=== PATIENT | female | born 1935 | race Two or more races ===

== ENCOUNTER 2023-05-27 09:54 | Emergency (ER) | payer SELFPAY ==
[2023-05-27 09:59] VITALS: BP 134/62
[2023-05-27 12:14] VITALS: BP 151/69
[2023-05-27 12:23] LABS: Urine Albumin Negative (Neg - Trace); Urine Bilirubin Negative (Negative); Urine Character Clear (Clear); Urine Color Yellow; Urine Glucose Negative (Negative); Urine Ketone Negative (Negative); Urine Leukocyte 1+ (Negative); Urine Nitrite Positive (Negative); Urine Occult Blood Negative (Negative); Urine Urobilinogen Negative (Neg - 1+)
[2023-05-27 12:26] LABS: % Basophils 0.3 % (0-2); % Eosinophils 1.8 % (0-6); % Immature Granulocytes 0.5 % (0-0.5); % Lymphocytes 13.2 % (20.5-51.1); % Monocytes 7.9 % (1.7-9.3); % Neutrophils 76.3 % (42.2-75.2); Absolute Eosinophils 0.1 10^3/uL (0-0.7); Absolute Lymphocytes 1.1 10^3/uL (1.2-3.4); Absolute Monocytes 0.6 10^3/uL (0.1-0.6); Absolute Neutrophils 6.1 10^3/uL (1.4-6.5); Hematocrit 39.8 % (37.0-47.0); Hemoglobin 13.3 g/dL (12.0-16.0); Mean Corp Hgb Conc. 33.4 g/dL (33.0-37.0); Mean Corpuscular Hgb 28.9 pg (27.0-31.0); Mean Corpuscular Volume 86.5 fL (81.0-99.0); Mean Platelet Volume 11.2 fL (7.4-10.4); Nucleated Red Blood Cells % 0 %; Platelet Count 268 10^3/uL (130-400); Red Cell Dist. Width 13.4 % (11.5-14.5); White Blood Cell Count 7.9 10^3/uL (4.8-10.8)
[2023-05-27 12:34] LABS: ALT (SGPT) 135 U/L (0-35); AST (SGOT) 67 U/L (14-36); Alkaline Phosphatase 69 U/L (38-126); Blood Urea Nitrogen 19 mg/dl (7-17); Calcium 9.2 mg/dl (8.4-10.2); Carbon Dioxide 29 mmol/L (22-30); Chloride 104 mmol/L (98-107); Glucose 91 mg/dl (70-99); Lipase 187 U/L (23-300); Potassium 3.9 mmol/L (3.5-5.1); Sodium 136 mmol/L (135-145); Total Bilirubin 0.8 mg/dl (0.2-1.3); Total Protein 7.4 g/dl (6.3-8.2); eGFR > 60.00
[2023-05-27 12:37] LABS: Urine Bacteria Many (Negative)
[2023-05-27 12:38] LABS: Urine Red Blood Cell 0-2 /HPF (0-2)
[2023-05-27 12:46] LABS: Troponin I 0.025 ng/ml
--- NOTE | 2023-05-27 12:58 | ED.GENMED ---
History of Present Illness
General
Chief Complaint: Weakness
Source: family
Exam Limitations: clinical condition
Time Seen by Provider: 05/27/23 10:39
Nursing documentation reviewed up to this point in time: agreed with
Travel History
Have you had any contact with someone who has COVID-19?: No
Do you have any symptoms of coronavirus? Fever > 100 degrees, chills, cough, shortness of breath, sore throat, loss of taste or smell, muscle aches, or headache?: No
History of Present Illness
History of Present Illness:
pt is a 87 y/o F with no sig pmh
here with c/o intermittent abd pain, ,generalized or lower, family member isn't sure
pt always asks to , she says she wants to at home
and 9 days ago, pt's DIL noticed pt was unresponsive, seemingly having change in breathing, lethargic etc
and DIL thought she was dying, for a period of 7 hours and then pt beccame increasingly alert and able to drink and then eat
but since that day pt has had intermittent c/o abd pain
the DIL tested her urine with OTC test strip and no infx
pt has had less urination than normal but is still voiding
no back pain, fever, cp, sob
pt seems like her balance is a little off, she needs more assistance now than dshe did
DIL wondinerg if she had a stroke
Past History
Social History
Tobacco: Non-smoker
Alcohol: None
Drug: None
Personal: Single
Living: with family
Review of Systems
Review of Systems
Allergies reviewed?: Yes
Other source history: family
All Other Systems: Not applicable
Phy Exam
Physical Exam
Physical Exam:
GENERAL: Alert , in no apparent distress, well appearing
EYE: pupils equal and reactive
NECK: Supple
ENT: o/p clr, mmm.
CARDIAC: Regular rate and rhythm .
LUNGS: Clear breath sounds bilaterally, no acute respiratory distress, no wheezes/rales/rhonchi
ABDOMEN: Soft, without focal tenderness, no r/g, no cvat, normal bowel sounds
NEUROLOGICAL: Alert and oriented, no focal neuro deficits, moving all extremities, cn intact
SKIN: Warm and dry, skin intact.
MUSCULOSKELETAL: No edema, well perfused. neg tiffanie's sign
PSYCH: Normal and appropriate interaction.
Course
Orders/Labs/Results
Orders:
Orders
05/27/23 11:42
Electrocardiogram (*1) Urgent
Reason for Study: TIA/Stroke
CT Abd/pel Without Iv Or Oral Urgent
Comment:
Reason For Exam: abd pain, urinary sypmtoms, confusion
CT Head W/o Iv Contrast Urgent
Comment:
Reason For Exam: confusion
EKG- Treatment ONCE
CR Chest - 2 Views Urgent
Comment:
Reason For Exam: confusion
05/27/23 12:05
Complete Blood Count/With Diff Urgent
Comprehensive Metabolic Panel Urgent
Lipase Urgent
Troponin I Urgent
Urinalysis Reflex To Culture Urgent
Date Specimen was Collected: 05/27/23
Time Specimen was Collected: 12:03
Urine Microscopic Reflex Cult Urgent
Urine Culture Urgent
CHRISTOPHE Source: U
Specimen Description:
Date Specimen was Collected: 05/27/23
Time Specimen was Collected: 12:03
05/27/23 13:32
Cephalexin Monohydrate [Keflex] 500 mg PO NOW STA
Abnormal Lab Results
05/27/23
12:05
MPV 11.2 H fL
(7.4-10.4)
Absolute Lymphs (auto) 1.1 L 10^3/uL
(1.2-3.4)
Neutrophils % 76.3 H %
(42.2-75.2)
Lymphocytes % 13.2 L %
(20.5-51.1)
BUN 19 H mg/dl
(7-17)
AST 67 H U/L
(14-36)
ALT 135 H U/L
(0-35)
Urine Nitrite (Reflex) Positive A
(Negative)
Leukocyte Esterase Rfl 1+ A
(Negative)
Urine WBC (Reflex) 11-15 A /HPF
(0-5)
Urine Bacteria (Reflex) Many A
(Negative)
05/27/23 12:05
05/27/23 12:05
Vital Signs
Initial and Last Documented VS:
Initial Vital Signs
Temp Pulse Resp BP Pulse Ox
98.2 F 71 17 134/62 98
05/27/23 09:59 05/27/23 09:59 05/27/23 09:59 05/27/23 09:59 05/27/23 09:59
Last Documented Vital Signs
Temp Pulse Resp BP Pulse Ox
98.2 F 71 17 151/69 98
05/27/23 09:59 05/27/23 09:59 05/27/23 09:59 05/27/23 12:14 05/27/23 09:59
MDM/Problems Addressed
Differential Diagnosis Includes:
uti, kidney stone, divertic, constipation
MDM/Problems Addressed:
87 y/o F nonenglish speaking
lives with DIL
noted to ahve ams for 7 hours last week and then resolved; family thought she she was dying but she started eating and being responsive
she is much better and has not had other episodes
but she is a little more weak and needing help tot he bathroom, also c/o itermittent abd harshal
doesn't have PCP because doesn't have insurance
on exam pt is oriented, in her language speaking appropriately, moving all extremities
nontender abdomen
urine appears to be infected
wbc normal
cr normal
ct no obstuctive uropathy
head ct no stroke
pt's DIL would like to take her home
pt did well with walker
will give keflex and d/c home
*Critical Care Note
Total Time (30-74mins, 75-104mins- exclusive of procedures): Not Applicable
Update Note
Update Note:
05/30/2023 0752 AM
urine culture e coli joann priest, no treatment change required
ED Attending Note
-
Portions of this chart may have been created with voice recognition software.� Occasional wrong word or��sound alike� substitutions may have occurred due to the inherent limitations of voice recognition software.
Discharge Plan
Departure
Patient Disposition: Home (Routine Discharge)
Date of Disposition: 05/27/23
Time of Disposition: 13:33
Patient with high blood pressure during this ER visit?: Yes
Condition: Fair
Covid-19: Not Applicable
Discharge Problem:
UTI (urinary tract infection)
Instructions: Urinary Tract Infection, Adult (DC), BLOOD PRESSURE
Prescriptions:
New
cephalexin 500 mg capsule
500 mg PO BID Qty: 14 0RF
Referrals:
[facility] - Follow up in 1 week
NONE,* [Family Provider] -
Activity Restrictions/Additional Instructions:
Her symptoms are probably due to a bladder infection. Give her Keflex 500 mg twice a day for 7 days. Encourage fluids. Follow-up with the free [facility], she does have elevated blood pressure readings. She had an incidental finding of
What looks to be a mass next to her right kidney. This would need to be further imaged with an MRI to rule out malignancy. It is unlikely to be contributory today. Return for any change in mental status, fever, vomiting, inability to urinate,
blood in her urine, back pain or any concerns.
Interventions
Interventions:
*Nursing Disposition Last Done: 05/27/23 13:53
ED- Cardiac Assessment Last Done: 05/27/23 12:17
ED- Neurological Assessment Last Done: 05/27/23 12:17
ED- Pulmonary Assessment Last Done: 05/27/23 12:17
Discharge Date and Time
Discharge Date/Time: 05/27/23 13:54
[2023-05-27] MEDS: KEFLEX 500 MG PO (13:40)
--- NOTE | 2023-06-12 13:49 | CM ---
Addendum entered by Quiana Velasquez RN 06/12/23 14:14:
Patient does not have a PCP at this time as well for follow up.
Original Note:
CM was contacted by Cyn Hernandes who had been called to assist patient's daughter with waiver program. Patient was approved for Medicaid and it's currently been assigned to [facility]. Patient's daughter told Cyn that patient is in pain
and she feels like she is dying. Cyn advised that she bring patient to the emergency room for evaluation.
== END 2023-05-27 13:54 | disposition home or self-care (01) ==
LOC: EMR 09:54
PROVIDERS: Physician Assistant; EMERGENCY PHYSICIAN Emergency Medicine
DX: N39.0 Urinary tract infection, site not specified (principal)
CPT/HCPCS: 99284; 70450; 71046; 74176; 80053; 81003; 81015; 83690; 84484; 85025; 87077; 87086; 87186; 93005

== ENCOUNTER 2023-06-15 09:14 | Emergency (ER) | payer SELFPAY ==
[2023-06-15 09:21] VITALS: BP 159/70
[2023-06-15 09:34] VITALS: BP 152/70
--- NOTE | 2023-06-15 09:49 | ED.GENMED ---
History of Present Illness
<Sharon García PA-C - Last Filed: 06/16/23 17:09>
General
Chief Complaint: Abdominal Pain
Source: patient
Exam Limitations: none
Time Seen by Provider: 06/15/23 09:28
Travel History
Have you had any contact with someone who has COVID-19?: No
Do you have any symptoms of coronavirus? Fever > 100 degrees, chills, cough, shortness of breath, sore throat, loss of taste or smell, muscle aches, or headache?: No
History of Present Illness
History of Present Illness:
The patient is a 87 year old female presenting for evaluation of generalized pain and decreased p.o. intake. Symptoms been ongoing over the past month but worsening per patient's caregiver. Patient was seen in the emergency department about 3
weeks ago with similar symptoms, diagnosed with possible UTI treated with Keflex.
Per patient's caregiver�patient complains of generalized pain and abdominal pain daily, most severe in the morning. She had 1 recent episode of vomiting. She does endorse occasional shortness of breath. She denies any fever, chills, cough, chest
pain.
Patient's caregiver does give her MiraLAX daily and states that her bowel movements are regular. They are small but she feels they are correlated to amount of food intake. No blood in her stool or dark stool.
Patient's caregiver who is her llxbblva-mp-[id number] repeatedly states that she was under the impression that patient has colon cancer based on her most recent ER visit. On review of scan�there was note of possible mass on right kidney with further
imaging recommended. I do not see any mention of colon cancer. Patient's iuexuhzt-xk-cvi denies any further imaging/studies. She is currently undergoing paperwork to attempt to get patient at home care.
Past History
<Sharon García PA-C - Last Filed: 06/16/23 17:09>
Social History
Tobacco: Non-smoker
Alcohol: None
Drug: None
Personal: Single
Living: with family
Phy Exam
<Sharon García PA-C - Last Filed: 06/16/23 17:09>
Physical Exam
Physical Exam:
General: Frail, in no apparent distress
Vitals: Vital signs stable, afebrile
HEENT: Atraumatic, normocephalic; pupils equal round react light bilaterally, protecting airway
Neck: appears supple, no JVD
CV: Regular rate and rhythm, heart sounds normal, no evidence of cyanosis
Resp: No evidence of respiratory stress, lungs clear
Abd: Soft, diffuse mild tenderness without rebound or guarding, non-distended
Extremities: No deformities, no evidence of cyanosis or edema; DP pulses palpable and equal bilaterally
Neuro: alert; grossly intact
Psych: Normal affect
Skin: Intact, no rashes
Course
<Sharon García PA-C - Last Filed: 06/16/23 17:09>
Orders/Labs/Results
Orders:
Orders
06/15/23 10:07
Case Management Consult ONCE
Case Management Consult: Discharge Planning
0.9% Sodium Chloride 1000 ml [Nss] 1,000 ml IV BOLUS
06/15/23 10:22
Comprehensive Metabolic Panel Urgent
Lipase Urgent
06/15/23 10:54
Urinalysis Reflex To Culture Urgent
Date Specimen was Collected: 06/15/23
Time Specimen was Collected: 10:49
06/15/23 12:55
Complete Blood Count/With Diff Routine
Comment: REORDERED; PREV. COLLECTED IN SST TUBE, MUST BE LAV TOP TUBE
Abnormal Lab Results
06/15/23 06/15/23
10:22 12:55
MPV 11.0 H fL
(7.4-10.4)
Absolute Lymphs (auto) 1.1 L 10^3/uL
(1.2-3.4)
Lymphocytes % 16.3 L %
(20.5-51.1)
BUN 21 H mg/dl
(7-17)
AST 74 H U/L
(14-36)
ALT 64 H U/L
(0-35)
06/15/23 12:55
06/15/23 10:22
Vital Signs
Initial and Last Documented VS:
Initial Vital Signs
Temp Pulse Resp BP Pulse Ox
98.4 F 61 18 159/70 99
06/15/23 09:21 06/15/23 09:21 06/15/23 09:21 06/15/23 09:21 06/15/23 09:21
Last Documented Vital Signs
Temp Pulse Resp BP Pulse Ox
98.4 F 58 19 132/82 99
06/15/23 09:21 06/15/23 13:30 06/15/23 13:30 06/15/23 13:00 06/15/23 13:30
<Eddie Shah, DO - Last Filed: 06/15/23 12:44>
Orders/Labs/Results
Orders:
Orders
06/15/23 10:07
Case Management Consult ONCE
Case Management Consult: Discharge Planning
0.9% Sodium Chloride 1000 ml [Nss] 1,000 ml IV BOLUS
06/15/23 10:22
Comprehensive Metabolic Panel Urgent
Lipase Urgent
06/15/23 10:54
Urinalysis Reflex To Culture Urgent
Date Specimen was Collected: 06/15/23
Time Specimen was Collected: 10:49
06/15/23 12:55
Complete Blood Count/With Diff Routine
Comment: REORDERED; PREV. COLLECTED IN SST TUBE, MUST BE LAV TOP TUBE
Abnormal Lab Results
06/15/23 06/15/23
10:22 12:55
MPV 11.0 H fL
(7.4-10.4)
Absolute Lymphs (auto) 1.1 L 10^3/uL
(1.2-3.4)
Lymphocytes % 16.3 L %
(20.5-51.1)
BUN 21 H mg/dl
(7-17)
AST 74 H U/L
(14-36)
ALT 64 H U/L
(0-35)
06/15/23 12:55
06/15/23 10:22
Vital Signs
Initial and Last Documented VS:
Initial Vital Signs
Temp Pulse Resp BP Pulse Ox
98.4 F 61 18 159/70 99
06/15/23 09:21 06/15/23 09:21 06/15/23 09:21 06/15/23 09:21 06/15/23 09:21
Last Documented Vital Signs
Temp Pulse Resp BP Pulse Ox
98.4 F 58 19 132/82 99
06/15/23 09:21 06/15/23 13:30 06/15/23 13:30 06/15/23 13:00 06/15/23 13:30
<Sharon García PA-C - Last Filed: 06/16/23 17:09>
MDM/Problems Addressed
Differential Diagnosis Includes:
UTI, dehydration, malignancy, etc.
MDM/Problems Addressed:
Patient is an 87-year-old female presenting with wsgmrbfv-ya-mtf/caregiver for evaluation of generalized pain and decreased p.o. intake. Patient recently seen in ER about 3 weeks ago where she had head CT, abdomen CT, discharged with course of
Keflex for presumed UTI. Patient increasingly weak over the past few weeks with very little p.o. intake. Generalized pain that is worsening per patient's sovetzdc-vn-god. No fever, chills, chest pain, cough. Patient's daughter in the looking for
assistance with home care and trying to determine how to get more help given that she has no health insurance. Patient's vital signs are stable. Physical exam as document above. She is weak appearing with dry mucous members. Her abdomen is soft
and diffusely tender. Given recent CT scan�will avoid repeat CT at this time with no focal pain. Will check basic labs, give IV fluids. Will consult case management.
Case management in to see patient. Form has been signed by attending to start process to have visiting nurse care. Will wait for basic labs and reassess patient. anticipate discharge with home care follow-up.
CBC without any clinically significant abnormalities. CMP without any clinically significant abnormalities. Mild transaminitis which is decreased from prior visit. Urinalysis shows no signs of infection.
Patient's daughter insistent that patient was diagnosed with colon cancer on most recent ER visit. Reviewed CT scan which did show a mass near her right kidney with recommendation for outpatient MRI to rule out malignancy. She has not had any
subsequent visits for medical care for diagnosis of colon cancer. No indication that this is related to today's visit.
In to reassess patient. She is received liter of fluids. Her abdomen remains soft, very mildly tender. Patient's daughter comfortable with discharge with at home nursing care that will be arranged shortly. Will prescribe few tablets of tramadol
for intractable pain. Educated patient on risks associate with tramadol and elderly. 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 Return precautions discussed.
Chronic conditions affecting care:
N/A
Acute Exacerbation and/or Progression of Chronic Illness:
N/A
<Sharon García PA-C - Last Filed: 06/16/23 17:09>
*Pulse Oximetry
Patient hypoxic: no
*EKG
Interpreted by ED Provider?: NA
*Curriculum And Instruction Director Interpretation
Rate: Curriculum And Instruction Director- N/A
*Critical Care Note
Total Time (30-74mins, 75-104mins- exclusive of procedures): Not Applicable
Data Reviewed
Review of Other/Old Records Reveals: Labs, Records, Radiology Studies and Discharge Summary
Source: physician locums urgent care, previous radiology exam and previous hospital records
Further Testing Considered But Not Given:
CT of abdomen but patient had recent CT 3 weeks ago, abdomen exam benign at this time
<Sharon García PA-C - Last Filed: 06/16/23 17:09>
Patient Management
Social determinants of health affecting care: Living situation
Discussion with other providers: Other (Case management)
ED Attending Note
<Sharon García PA-C - Last Filed: 06/16/23 17:09>
-
Portions of this chart may have been created with voice recognition software.� Occasional wrong word or��sound alike� substitutions may have occurred due to the inherent limitations of voice recognition software.
<Eddie Shah DO - Last Filed: 06/15/23 12:44>
ED Attending Note
Patient seen and examined by attending physician: Yes
I performed the substantive portion of visit, reviewed & personally made and approve the management plan that is documented in note by myself or ALLI.: Yes
I performed a history and physical exam of patient and discussed management with resident, I reviewed resident's note and agree with documented findings and plan of care.: Yes
ED Attending Note:
I evaluated patient at bedside. The patient states she has no pain currently (translated through the daughter). She has a soft abdomen on exam currently. She did have CT imaging recently which I reviewed which did show at least a questionable
abnormality off of the kidney suggestive of malignancy but no other clear findings for malignancy elsewhere. Spoke to care management.
Discharge Plan
Departure
Patient Disposition: Home (Routine Discharge)
Date of Disposition: 06/15/23
Time of Disposition: 13:41
Patient with high blood pressure during this ER visit?: Yes
Condition: Good
Covid-19: Not Applicable
Discharge Problem:
Abdominal pain
Instructions: Dehydration, Adult (DC), Abdominal Pain, Adult ED, BLOOD PRESSURE
Prescriptions:
New
tramadol 50 mg tablet
50 mg PO DAILY PRN (Reason: severe pain) Qty: 6 0RF
No Action
Metamucil Packet
1 packet PO DAILY
acetaminophen [Tylenol Extra Strength] 500 mg Tablet
1,000 mg PO Q6HPRN PRN (Reason: MILD PAIN)
magnesium 200 mg Tablet
200 mg PO QPM
cholecalciferol (vitamin D3) [Vitamin D3] 25 mcg (1,000 unit) Tablet
25 mcg PO QPM
Visbiome 112.5 billion cell Capsule
1 cap PO DAILY
PNV cmb#95-ferrous fumarate-FA [] 28 mg iron- 800 mcg Tablet
1 tab PO DAILY
Referrals:
NONE,* [Family Provider] -
Activity Restrictions/Additional Instructions:
- Return to the emergency department any high fevers, severe abdominal pain, intractable nausea/vomiting, signs of severe dehydration, chest pain, shortness of breath, worsening current symptoms, or any other concerns
-You should take Tylenol as needed for discomfort.
-For episodes of intractable, severe pain prescription for tramadol has been sent to your pharmacy. You should only use this for severe pain. As discussed�this may cause drowsiness/instability
-It is important stay well-hydrated
-You should follow-up with primary care for further evaluation/management
Interventions
Interventions:
*Risk Screen - Suicide Last Done: 06/15/23 09:26
*General Assessment Last Done: 06/15/23 09:26
*Neglect/Abuse Screening Last Done: 06/15/23 09:26
ED- Fall Risk Assessment Last Done: 06/15/23 11:09
*ED COVID-19 Vaccine History Last Done: 06/15/23 11:09
*Nursing Disposition Last Done: 06/15/23 14:05
TR-Xsxtbf-Dczyhnhodr Assessment Last Done: 06/15/23 11:09
Discharge Date and Time
Discharge Date/Time: 06/15/23 14:06
[2023-06-15 10:13] VITALS: BP 126/70
[2023-06-15 10:42] LABS: ALT (SGPT) 64 U/L (0-35); AST (SGOT) 74 U/L (14-36); Albumin 3.9 g/dl (3.5-5.0); Alkaline Phosphatase 55 U/L (38-126); Blood Urea Nitrogen 21 mg/dl (7-17); Carbon Dioxide 28 mmol/L (22-30); Chloride 104 mmol/L (98-107); Glucose 99 mg/dl (70-99); Lipase 77 U/L (23-300); Potassium 4.1 mmol/L (3.5-5.1); Sodium 136 mmol/L (135-145); Total Bilirubin 0.7 mg/dl (0.2-1.3); Total Protein 7.4 g/dl (6.3-8.2); eGFR > 60.00
[2023-06-15] MEDS: NSS 1000 IV (10:50)
--- NOTE | 2023-06-15 10:51 | CM ---
CM reviewed medical records. Patient's daughter is requesting assistance with filling out Waiver Program paperwork. CM requested ED physician to sign Waiver certification. CM returned form to daughter.
CM further provided resources on [facility] and Residency Program to assist with PCP follow up.
[2023-06-15 11:00] VITALS: BP 133/70
[2023-06-15 11:03] LABS: Urine Albumin Negative (Neg - Trace); Urine Bilirubin Negative (Negative); Urine Character Clear (Clear); Urine Color Yellow; Urine Glucose Negative (Negative); Urine Ketone Negative (Negative); Urine Leukocyte Negative (Negative); Urine Nitrite Negative (Negative); Urine Occult Blood Negative (Negative); Urine Urobilinogen Negative (Neg - 1+); Urine pH 6.5 (5.0-9.0)
[2023-06-15 12:00] VITALS: BP 169/75
[2023-06-15 13:00] VITALS: BP 132/82
[2023-06-15 13:09] LABS: % Basophils 0.3 % (0-2); % Eosinophils 2.6 % (0-6); % Immature Granulocytes 0.3 % (0-0.5); % Lymphocytes 16.3 % (20.5-51.1); % Monocytes 8.8 % (1.7-9.3); % Neutrophils 71.7 % (42.2-75.2); Absolute Eosinophils 0.2 10^3/uL (0-0.7); Absolute Lymphocytes 1.1 10^3/uL (1.2-3.4); Absolute Monocytes 0.6 10^3/uL (0.1-0.6); Absolute Neutrophils 4.7 10^3/uL (1.4-6.5); Hematocrit 39.7 % (37.0-47.0); Hemoglobin 13.2 g/dL (12.0-16.0); Mean Corp Hgb Conc. 33.2 g/dL (33.0-37.0); Mean Corpuscular Hgb 28.9 pg (27.0-31.0); Mean Corpuscular Volume 87.1 fL (81.0-99.0); Nucleated Red Blood Cells % 0 %; Platelet Count 233 10^3/uL (130-400); Red Blood Cell Count 4.56 10^6/uL (4.20-5.40); Red Cell Dist. Width 13.7 % (11.5-14.5); White Blood Cell Count 6.6 10^3/uL (4.8-10.8)
== END 2023-06-15 14:06 | disposition home or self-care (01) ==
LOC: EMR 09:14
PROVIDERS: Physician Assistant; EMERGENCY PHYSICIAN Emergency Medicine
DX: R10.9 Unspecified abdominal pain (principal); R03.0 Elevated blood-pressure reading, without diagnosis of hypertension
CPT/HCPCS: 99284; 96360; 80053; 81003; 83690; 85025

== ENCOUNTER 2025-01-02 11:46 | Inpatient (IN) | payer MEDICARE, OTHER, SELFPAY ==
[2025-01-01 10:39] VITALS: BP 144/65
[2025-01-01 11:00] VITALS: BP 132/59
[2025-01-01] MEDS: NSS 500 IV (11:38)
[2025-01-01 11:59] LABS: Hematocrit 40.4 % (37.0-47.0); Hemoglobin 13.2 g/dL (12.0-16.0); Mean Corp Hgb Conc. 32.7 g/dL (33.0-37.0); Mean Corpuscular Volume 90.2 fL (81.0-99.0); Nucleated Red Blood Cells % 0 %; Platelet Count 194 10^3/uL (130-400); Red Cell Dist. Width 13.7 % (11.5-14.5)
[2025-01-01 12:04] LABS: ALT (SGPT) 58 U/L (0-35); AST (SGOT) 53 U/L (14-36); Albumin 3.9 g/dl (3.5-5.0); Alkaline Phosphatase 75 U/L (38-126); Blood Urea Nitrogen 25 mg/dl (7-17); Calcium 9.2 mg/dl (8.4-10.2); Carbon Dioxide 29 mmol/L (22-30); Chloride 109 mmol/L (98-107); Glucose 98 mg/dl (70-99); Lipase 96 U/L (23-300); Potassium 3.8 mmol/L (3.5-5.1); Sodium 142 mmol/L (135-145); Total Protein 7.5 g/dl (6.3-8.2); eGFR > 60.00
[2025-01-01 12:11] LABS: Urine Character Clear (Clear)
[2025-01-01 12:38] LABS: Urine Squamous Cell 0-2 /LPF (Few)
--- NOTE | 2025-01-01 14:59 | ED.GENMED ---
History of Present Illness
General
Chief Complaint: Urinary Symptoms
Source: patient and family
Exam Limitations: none
Time Seen by Provider: 01/01/25 10:17
History of Present Illness
History of Present Illness:
89-year-old female presents with urinary issues. At times inability to urinate at times frequency and ongoing chronic abdominal pain not responsive to Tylenol.
Past History
Past History
ED Past Medical History: Cancer and GERD
ED Past Surgical History: Cholecystectomy and Urological
Social History
Tobacco: Non-smoker
Alcohol: None
Drug: None
Personal: Single
Living: with family
Review of Systems
Review of Systems
All Other Systems: Not applicable
Respiratory: Reports no symptoms
Cardiac: Reports no symptoms
Phy Exam
Physical Exam
Physical Exam:
GENERAL: Alert. Elderly and frail
EYE: Orbits normal.
NECK: Supple, no significant adenopathy.
ENT: Pharynx without erythema
CARDIAC: Regular rate and rhythm without any obvious murmurs.
LUNGS: Clear breath sounds,normal
ABDOMEN: Soft, mild diffuse tenderness. No rebound or guarding no mass or hernia
NEUROLOGICAL: Alert and oriented , grossly non-focal
SKIN: Warm and dry, no rash or lesion, no discoloration, skin intact.
MUSCULOSKELETAL: No edema,no deformity.Good color
PSYCH: Normal and appropriate interaction.
Course
Orders/Labs/Results
Orders:
Orders
01/01/25 10:50
CT Abd/Pel (IV only)-DH only Urgent
Comment:
Reason For Exam: Diffuse abdominal pain. Urinary symptoms
IV Insert/Care/Rem.- Treatment PRN
Straight cath- Treatment ONCE
0.9% Sodium Chloride 500 ml [Nss] 500 ml IV BOLUS
01/01/25 11:37
Complete Blood Count/With Diff Urgent
Comprehensive Metabolic Panel Urgent
Lipase Urgent
Urinalysis Reflex To Culture Urgent
Date Specimen was Collected: 01/01/25
Time Specimen was Collected: 11:02
Urine Microscopic Reflex Cult Urgent
Urine Culture Urgent
CHRISTOPHE Source: U
Specimen Description:
Date Specimen was Collected: 01/01/25
Time Specimen was Collected: 11:02
01/01/25 14:54
CefTRIAXone [Rocephin] 1,000 mg IV NOW STA
Abnormal Lab Results
01/01/25
11:37
MCHC 32.7 L g/dL
(33.0-37.0)
MPV 11.7 H fL
(7.4-10.4)
Absolute Lymphs (auto) 0.7 L 10^3/uL
(1.2-3.4)
Neutrophils % 78.7 H %
(42.2-75.2)
Lymphocytes % 10.8 L %
(20.5-51.1)
Chloride 109 H mmol/L
(98-107)
BUN 25 H mg/dl
(7-17)
AST 53 H U/L
(14-36)
ALT 58 H U/L
(0-35)
Ur Occult Blood Reflex 2+ A
(Negative)
Urine Nitrite (Reflex) Positive A
(Negative)
Leukocyte Esterase Rfl 2+ A
(Negative)
Urine RBC 7-10 A /HPF
(0-2)
Urine WBC (Reflex) 11-15 A /HPF
(0-5)
Urine Bacteria (Reflex) Many A
(Negative)
Urine Albumin (Reflex) 2+ A
(Neg - Trace)
01/01/25 11:37
01/01/25 11:37
Vital Signs
Initial and Last Documented VS:
Initial Vital Signs
BP Pulse Ox
144/65 99
01/01/25 10:39 01/01/25 10:39
Last Documented Vital Signs
BP Pulse Ox
132/59 99
01/01/25 11:00 01/01/25 15:02
*Radiology
Radiology exam reviewed: radiology read reviewed (CT scan shows cystitis severe calcific atherosclerotic disease renal cysts prior cholecystectomy. 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
*Pulse Oximetry
SaO2: 99
Oxygen Mode of Delivery: Room air
Patient hypoxic: no
*Critical Care Note
Total Time (30-74mins, 75-104mins- exclusive of procedures): Not Applicable
Update Note
Update Note:
Patient has a UTI. Medically stable otherwise. Chronic changes on CT scan I had encouraged possible outpatient management per the daughter in law. But, she is not comfortable with outpatient management and does not want her at home and is not
comfortable having her at home. Will admit as an hobs
ED Attending Note
-
Portions of this chart may have been created with voice recognition software.� Occasional wrong word or��sound alike� substitutions may have occurred due to the inherent limitations of voice recognition software.
Discharge Plan
Departure
Patient Disposition: Admit
Date of Disposition: 01/01/25
Time of Disposition: 15:01
Presentation/result/management discussed w/ accepting MD/DO: Hospitalist
Discharge Problem:
UTI/weakness
Prescriptions:
No Action
Metamucil Packet
1 packet PO DAILY
acetaminophen [Tylenol Extra Strength] 500 mg Tablet
1,000 mg PO Q6HPRN PRN (Reason: MILD PAIN)
magnesium 200 mg Tablet
200 mg PO QPM
cholecalciferol (vitamin D3) [Vitamin D3] 25 mcg (1,000 unit) Tablet
25 mcg PO QPM
Visbiome 112.5 billion cell Capsule
1 cap PO DAILY
PNV no.95-ferrous fumarate-FA [] 28 mg iron- 800 mcg Tablet
1 tab PO DAILY
tramadol 50 mg tablet
50 mg PO DAILY PRN (Reason: severe pain) Qty: 6 0RF
tramadol 50 mg tablet
50 mg PO Q8H PRN (Reason: Pain) Qty: 6 0RF
Referrals:
Alexi Cobian DO [Family Provider, Family Practice]
Interventions
Interventions:
ED-Female Genitourinary Assessment Last Done: 01/01/25 12:15
Discharge Date and Time
Print Language: POLISH
--- NOTE | 2025-01-01 15:22 | HPS.HSE ---
Family Physician
-
Family Physician: Alexi Cobian,
Chief Complaint
-
Dysuria and generalized weakness
History of Present Illness
Patient is Brazilian speaking, language line used for this visit. No family present at bedside.
89-year-old female with no signal past medical history except chronic ambulatory dysfunction,h/o of cancer? Was broughy patient ht in by daughter after patient was noted to be more weak lethargic. Language line used for history gathering and
patient complaining some dysuria and some urinary incontinence at time. Have some lower abdominal discomfort although not specifically worse with urination, happens when patient tries to move as well. Patient complaining of pain from 'head to
toe'. Patient also continue repeating being old and wanting to . Denies any nausea/vomiting/fever.
Chart reviewed and patient have previous 1 urine culture showing E. coli growth. Patient unsure if ever had problem with kidney stones.
Patient also complains of feeling dizzy at time and uses stick to get around. Lives with [id number] and other family. Patient has been falling unable to specify if have felt recently. Patient stated of having passed out day before when going
to the bathroom in the night. No chest discomfort/shortness of breath reported.
Medical History
Past Medical History
Past Medical History: Reports Other
Past Surgical History: Reports Other
Social History
Tobacco: Non-smoker
Alcohol: None
Drug: None
Living: With Family
Family History
Family History: Not pertinent
Allergies / Home Medications
Allergies reflects when Allergies were last updated in [employer]
Home Medications with original date entered in [employer]
Allergy/Medication List:
Allergies
Allergy/AdvReac Type Severity Reaction Status Date / Time
coffee (Coffea arabica) Allergy Unknown Verified 06/15/23 09:20
egg Allergy Unknown Verified 06/15/23 09:20
Home Medications
acetaminophen 500 mg tablet (Tylenol Extra Strength) 1,000 mg PO Q6HPRN PRN MILD PAIN 06/15/23
Lactobac no.2-Bifidobac no.1-S. thermo 112.5 billion cell capsule (Visbiome) 1 cap PO DAILY 01/01/25
therapeutic multivitamin 1 tab PO DAILY 01/01/25
Review of Systems
-
A 12 point ROS was completed and negative except as noted: Yes
Physical Exam
Vital Signs
Vital Signs
BP Pulse Ox
132/59 99
01/01/25 11:00 01/01/25 15:02
Physical Exam
General: No Apparent Distress and Cachectic
HEENT: Atraumatic; No Oxygen
Respiratory: Clear
Cardiac: S1/S2 and Regular Rhythm; No Murmur or Rub
GI: Soft, Non Tender, Non Distended and Tender (Minimal on lower abdomen); No Organomegaly
Rectal: Deferred by Provider
Musculoskeletal: No Edema
Skin: No Rash
Neuro: Awake, Alert, Oriented and Nonfocal/grossly intact
Psych: Calm
Laboratory Results
-
01/01/25 11:37
01/01/25 11:37
Laboratory Results
Total Bilirubin 0.5 mg/dl (0.2-1.3) 01/01/25 11:37
AST 53 U/L (14-36) H 01/01/25 11:37
ALT 58 U/L (0-35) H 01/01/25 11:37
Alkaline Phosphatase 75 U/L (38-126) 01/01/25 11:37
Lipase 96 U/L (23-300) 01/01/25 11:37
Impression/Plan
-
CT a/p
1. Mild diffuse urinary bladder wall thickening consistent with acute cystitis.
2. VERY SEVERE CALCIFIC ATHEROSCLEROTIC DISEASE in the abdominal aorta, common iliac, and femoral arteries.
3. Small bilateral renal cysts.
4. Mild biliary dilatation.
5. Previous cholecystectomy.
6. Round 1.0 cm enhancing lesion in the anterior segment of the right lobe of the liver. Diagnostic possibilities are (1) a small peripheral vascular shunt (most likely) or (2) a small hepatic tumor (probably benign).
7. Moderate fecal material in the proximal colon.
8. Severe multilevel lumbar discogenic degenerative disease.
9. 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
10. Mild left to right mediastinal shift suggesting right lung volume loss.

1. Acute cystitis/urinary tract infection
- UA showing significant pyuria and bacteriuria
- Patient complaining lower abdominal discomfort and some dysuria, unable to specify details despite use of language line
- CT abdomen pelvis report as above
- Got IV Rocephin in ER continue
- Urine culture has been collected
- If patient spikes fever will require blood cultures while
2. Generalized weakness
Ambulatory dysfunction
- PT OT evaluation ordered
- Patient stated of using stick to get around at home
3. Presyncope/syncope
- Patient reported to having a syncope episode day before and woke up in the night
- Suspecting orthostatic in nature, vital checks ordered
4. Hepatic mass
- Reported history of cancer in the chart? needs to be verified
- CTAP showing a small lesion possible vascular shunt versus benign tumor
5. Peripheral arterial disease
- Severe calcific changes of abdominal aorta/iliac/femoral artery
- Good lower extremity pulse, no signs of ischemia
6. Constipation
- maintain on miralax prn
DVTPPX -SCD
Full code
Total time spent : 78 mins
I personally saw and examined the patient.
I have reviewed all diagnostic interpretations and treatment plans as written.
Time includes patient management by me, time spent at the patients bedside, time to review lab and imaging results, discussing patient care, documentation in the medical record, and time spent with the family or caregiver and discussing care plan
with RN/Consultants.
[2025-01-01] MEDS: ROCEPHIN 1000 MG IV (15:53)
--- NOTE | 2025-01-01 16:32 | EDCM ---
Addendum entered by Ana Lilia Brito 01/01/25 16:42:
ZENG form reviewed over the phone with DEMETRIUS, copy left at bedside in ED.
Original Note:
CM reviewed chart and spoke to her DIL Sharmaine Croft over the phone. Pt speaks Malay.
Lives with her son, DEMETRIUS and teenage grandson in 1 story home, [address].
Pt needs assistance with ADLs and personal care. DEMETRIUS is paid caregiver, 9 hours a day. DEMETRIUS also works at [employer].
Was ambulating with RW but has been very weak over past week, also has commode and shower chair.
DIL unsure if prescription coverage as pt is not on any prescription meds.
No hx VN or SNF.
DIL mentioned they were told she had 'kidney tumors' in the past, questioning if this is causing her pain. Pt did not want treatment or further studies done. Discussed possibility of palliative care consult, she will think about it.
PCP: Alexi Cobian
Pharmacy: [facility]
CM will continue to follow for all discharge planning needs.
[2025-01-01 18:11] VITALS: BMI 19.7
[2025-01-01 18:33] VITALS: BP 163/98
[2025-01-01] MEDS: HEPARIN 5000 UNITS SC (20:44)
[2025-01-01] MEDS: NSS 1000 IV (20:44)
[2025-01-01] MEDS: VITAMIN D3 (cholecalciferol) 25 MCG PO (20:44)
[2025-01-01] MEDS: TYLENOL 650 MG PO (20:48)
[2025-01-01 23:39] VITALS: BP 149/69
--- NOTE | 2025-01-02 00:47 | PTCARENOTE ---
Pt has been voiding frequently on BSC in increasingly smaller amts. Bladder scanned for >417 ml. Pt straight cathed after procedure explained through orange picker machine operator. Pt cooperative & tolerated well; 400ml obtained.
--- NOTE | 2025-01-02 06:33 | PTCARENOTE ---
Many times OOB to BSC thru the night, sometimes voiding and sometimes no void. Bladder scanned @ 0500 for 297ml (not post void) and then proceeded to void 150ml. Just now voided again - 100ml. Has denied dysuria via cruise consultant.
[2025-01-02 07:15] VITALS: BP 122/68
[2025-01-02] MEDS: HEPARIN 5000 UNITS SC ×2 (08:16→20:36)
[2025-01-02 08:50] LABS: Hematocrit 43.3 % (37.0-47.0); Hemoglobin 14.6 g/dL (12.0-16.0); Mean Corp Hgb Conc. 33.7 g/dL (33.0-37.0); Mean Corpuscular Volume 88.4 fL (81.0-99.0); Platelet Count 197 10^3/uL (130-400); Red Cell Dist. Width 13.5 % (11.5-14.5)
[2025-01-02 09:20] LABS: Blood Urea Nitrogen 14 mg/dl (7-17); Calcium 8.7 mg/dl (8.4-10.2); Carbon Dioxide 24 mmol/L (22-30); Chloride 106 mmol/L (98-107); Estimated Creatinine Clearance 33 ml/min; Glucose 107 mg/dl (70-99); Potassium 3.8 mmol/L (3.5-5.1); Sodium 139 mmol/L (135-145); eGFR > 60.00
[2025-01-02 09:22] VITALS: BP 160/83; BP 176/86; PULSE 71; O2SAT 98
[2025-01-02 09:59] VITALS: BP 160/83; BP 176/86
[2025-01-02] MEDS: NSS 1000 IV ×2 (10:10→23:54)
--- NOTE | 2025-01-02 14:42 | W.PN.HOSP.TC ---
Today's Communication/Plan
-
cont ceftriaxone
MRI abdomen
cont pyridium
Assessment / Plan
Assessment / Plan
pt is an 89 year old female
Acute cystitis/urinary tract infection--possible cause of abdominal pain/pain with urination?--cont ceftriaxone--urine culture with E. coli--Pyridium started--cont IVF-- CT abdomen pelvis shows acute cystitis with bilateral renal cysts--DIL says pt
was found to have 'a mass in her kidney--was told to follow up with an MRI which she refused to do'--DIL concerned about cancer--will obtain MRI if pt will be cooperative
abdominal pain--other causes besides UTI could be Chronic avulsion fractures of both ischial tuberosities at the proximal hamstring tendon attachments, constipation
Generalized weakness/confusion with presyncope/syncope--Ambulatory dysfunction--pt says she feels dizzy--could be related to UTI--agree with PT/OT
Hepatic mass-- Reported history of cancer in the chart? needs to be verified-- CTAP showing a small lesion possible vascular shunt versus benign tumor--will obtain MRI abdomen
Peripheral arterial disease- Severe calcific changes of abdominal aorta/iliac/femoral artery--no signs of ischemia
Constipation- maintain on miralax prn--confirmed by CT scan--DIL says she goes all day at home
DVT proph -SCD
code status--Full code
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
Anticipated Discharge: 24 - 48 hours
Subjective/Interval History
-
Date of Service: January 02, 2025
pt speaks Mauritian--used language line--pt seems to have dementia as answers not corresponding to questions asked--DIL confirms
Objective Data
-
Labs:
Laboratory Results
01/02/25
08:01
WBC 5.7
Hgb 14.6
Hct 43.3
Plt Count 197
Sodium 139
Potassium 3.8
Chloride 106
Carbon Dioxide 24
BUN 14
Creatinine 0.7
Glucose 107 H
Calcium 8.7
Vital Signs:
max temp for 24 hours
01/01/25
23:39
Temp 97.7 F
Vital Signs
Temp Pulse Resp BP Pulse Ox
97.6 F 72 18 122/68 99
01/02/25 07:15 01/02/25 07:15 01/02/25 07:15 01/02/25 07:15 01/02/25 08:09
I&O
01/01/25 01/02/25 01/03/25
06:59 06:59 06:59
Intake Total 600 / 600
Output Total 925 / 925
Balance -325 / -325
Review of Systems
-
Unable to obtain full review of systems at this time due to: Dementia and Language Barrier
Physical Exam
-
General: Cachectic (frail appearing female)
HEENT: Normocephalic and Atraumatic; Negative Oxygen
Respiratory: Clear to Auscultation; Negative Wheezes or Rhonchi
Cardiac: Regular Rhythm and S1/S2; Negative Murmur
GI: Soft, Nondistended, Normal Bowel Sounds and Tender (suprapubic area)
Musculoskeletal: No Clubbing, No Cyanosis and No Edema
Neuro: Awake
Psych: Calm
[2025-01-02 15:10] VITALS: BP 111/75
--- NOTE | 2025-01-02 15:14 | CM ---
Patient seen at bedside with physician. Physician spoke with patient via language line. Patient daughter in law [phone] Génesis Croft and she indicated that patient may need placement but she will discuss with her options when diagnosis is
confirmed. Patient was living with daughter in law in the past and she did have waiver services 9 hours a day and has MA. CM will continue to follow for discharge planning needs.
Plan; pending medical treatment; SNF vs home with aides.
--- NOTE | 2025-01-02 16:17 | PTCARENOTE ---
Pt awake and alert, oriented to self; forgetful; speaks Slovenian. Pt frequently attempting to get OOB/chair; unsteady w/OOB activity; 1:1 obs initiated. BOTELLO well. VSS, unable to assess ortho VS; pt will not hold still long enough for BP to
register. On room air- pulse ox 99%, no SOB noted. Abd soft, sl rounded, sirena PO well. Voids frequent small amts yellow urine on BSC. IVF's NSS @ 75 ml/hr infusing via Rt forearm site without sx of infiltration. Will continue to monitor.
[2025-01-02] MEDS: STERILE WATER FOR INJECTION 10 ML IV (16:20)
[2025-01-02] MEDS: ROCEPHIN 1000 MG IV (16:20)
[2025-01-02] MEDS: VITAMIN D3 (cholecalciferol) 25 MCG PO (17:41)
[2025-01-02] MEDS: MELATONIN 3 MG PO (20:36)
[2025-01-02 23:05] VITALS: BP 149/76
--- NOTE | 2025-01-03 02:30 | PTCARENOTE ---
Patient continues with 1:1 monitoring overnight, trying to get up out of chair and bed. Assisted patient from chair to bed and bed to chair multiple times. Up to BSC but did not void. Bladder scanned for 338 ml. SYSTEMS PROGRAM MANAGER made aware, orders for
melatonin. Utilized language line to help redirect patient but patient still trying to get OOB. Agitated and combative at times, pulling out IV line. New line placed by VAT RN. Orders for left and right soft limb restraints and 4 side rails per
SYSTEMS PROGRAM MANAGER. Patient DTV, bladder scanned for 538 ml. Assisted patient to BSC x2, voided 120 ml. PVR of 453 ml. LIGHTING ENGINEER aware, orders for jaquez catheter. Procedure explained to patient via language line rice farmworker and patient agreeable. 14F jaquez placed. Plan
of care ongoing.
[2025-01-03 08:09] LABS: Hematocrit 42.3 % (37.0-47.0); Hemoglobin 14.2 g/dL (12.0-16.0); Mean Corp Hgb Conc. 33.6 g/dL (33.0-37.0); Mean Corpuscular Volume 88.3 fL (81.0-99.0); Platelet Count 212 10^3/uL (130-400); Red Cell Dist. Width 13.4 % (11.5-14.5)
[2025-01-03 08:17] VITALS: BP 179/83
[2025-01-03 08:43] LABS: ALT (SGPT) 62 U/L (0-35); AST (SGOT) 68 U/L (14-36); Albumin 4.2 g/dl (3.5-5.0); Alkaline Phosphatase 73 U/L (38-126); Blood Urea Nitrogen 17 mg/dl (7-17); Calcium 8.8 mg/dl (8.4-10.2); Carbon Dioxide 25 mmol/L (22-30); Chloride 108 mmol/L (98-107); Estimated Creatinine Clearance 33 ml/min; Glucose 106 mg/dl (70-99); Magnesium 1.8 mg/dl (1.6-2.3); Potassium 3.6 mmol/L (3.5-5.1); Sodium 141 mmol/L (135-145); Total Protein 7.7 g/dl (6.3-8.2); eGFR > 60.00
[2025-01-03] MEDS: HEPARIN 5000 UNITS SC ×2 (08:51→22:53)
[2025-01-03] MEDS: ATIVAN 0.5 MG PO (10:25)
[2025-01-03] MEDS: NSS IV (10:33)
--- NOTE | 2025-01-03 13:43 | W.PN.HOSP.TC ---
Today's Communication/Plan
-
cont jaquez
d/c planning
Assessment / Plan
Assessment / Plan
pt is an 89 year old female
E. coli Acute cystitis/urinary tract infection--possible cause of abdominal pain/pain with urination?--cont ceftriaxone--urine culture with E. coli--Pyridium started can stop now that jaquez in--no further agitation or pain c/o--stop IVF-- CT abdomen
pelvis shows acute cystitis with bilateral renal cysts--DIL says pt was found to have 'a mass in her kidney--was told to follow up with an MRI which she refused to do'--DIL concerned about cancer--MRI with possible liver hemangioma, constipation and
renal cysts
abdominal pain--other causes besides UTI could be Chronic avulsion fractures of both ischial tuberosities at the proximal hamstring tendon attachments, constipation
Generalized weakness/confusion with presyncope/syncope--Ambulatory dysfunction--pt says she feels dizzy--could be related to UTI--agree with PT/OT
Hepatic mass-- Reported history of cancer in the chart? needs to be verified-- CTAP showing a small lesion possible vascular shunt versus benign tumor--MRI abdomen as above
Peripheral arterial disease- Severe calcific changes of abdominal aorta/iliac/femoral artery--no signs of ischemia
Constipation- maintain on miralax daily--confirmed by CT scan--DEMETRIUS says she goes all day at home
DVT proph -SCD
code status--Full code
spoke with DEMETRIUS--she lives with her--youngest son of colon cancer and since then wants no part of doctors or workup--she has 9 hours of help and works with a social work assistant through the [employer]?--DEMETRIUS works at [employer] and [employer]
Anticipated Discharge: Within 24 hours
Subjective/Interval History
-
Date of Service: January 03, 2025
pt speaks Pashto--still not making much sense using the Language line
Objective Data
-
Labs:
Laboratory Results
10/07/25
07:41
WBC 5.7
Hgb 14.2
Hct 42.3
Plt Count 212
Sodium 141
Potassium 3.6
Chloride 108 H
Carbon Dioxide 25
BUN 17
Creatinine 0.7
Glucose 106 H
Calcium 8.8
Total Bilirubin 0.8
AST 68 H
ALT 62 H
Alkaline Phosphatase 73
Vital Signs:
max temp for 24 hours
01/02/25
23:05
Temp 98.1 F
Vital Signs
Temp Pulse Resp BP Pulse Ox
97.8 F 77 18 179/83 97
01/03/25 08:17 01/03/25 08:17 01/03/25 08:17 01/03/25 08:17 01/03/25 08:20
I&O
01/02/25 01/03/25 01/04/25
06:59 06:59 06:59
Intake Total 600 / 600 1830 / 1830
Output Total 925 / 925 475 / 475 1000 / 1000
Balance -325 / -325 1355 / 1355 -1000 / -1000
Review of Systems
-
Unable to obtain full review of systems at this time due to: Dementia and Language Barrier
Physical Exam
-
General: Appears Chronically Ill
HEENT: Normocephalic and Atraumatic; Negative Oxygen
Respiratory: Clear to Auscultation; Negative Wheezes or Rhonchi
Cardiac: Regular Rhythm and S1/S2; Negative Murmur
GI: Soft, Nontender, Nondistended and Normal Bowel Sounds
Genito-urinary: Jaquez (orange urine)
Musculoskeletal: No Clubbing, No Cyanosis and No Edema
Skin: Warm
Neuro: Awake
Psych: Calm
--- NOTE | 2025-01-03 14:46 | PN.CDI ---
Addendum entered and electronically signed by Jeanna Miranda MD 01/04/25 15:35:
documentation complete
Original Note:
CDI
- -
CDI:
Physician Documentation Request
Admit Date: 01/02/25 11:46
Dear Doctor Ruben,
Please review the following and provide your response in the progress notes.
Clinical Indicators:
PN, 01/03
#E. coli Acute cystitis/urinary tract infection--
#Generalized weakness/confusion with presyncope/syncope
#...--Ambulatory dysfunction--pt says she feels dizzy--could be related to UTI
#pt speaks Faroese--still not making much sense using the Language line
01/02/25 16:17 - Patient Care Note
#...awake and alert, oriented to self; forgetful; speaks Faroese.
#...frequently attempting to get OOB/chair; unsteady w/OOB activity;
#...1:1 obs initiated. BOTELLO well.
#VSS, unable to assess ortho VS; pt will not hold still long enough for BP to register.
01/03/25 02:30 (created 01/03/25 08:01) - Patient Care Note
#...continues with 1:1 monitoring overnight, trying to get up out of chair and bed.
#Utilized language line to help redirect patient but patient still trying to get OOB.
#Agitated and combative at times, pulling out IV line. New line placed by VAT RN.
#Orders for left and right soft limb restraints and 4 side rails per TAVERN CAR ATTENDANT.
Based on the above and your clinical assessment, please clarify in the Progress Notes and Discharge Summary which, if any of the following, is the most likely etiology of the confusion/altered mental status.
Multifactorial Acute Metabolic Encephalopathy - due to a specific condition such as UTI, physiological/metabolic derangements, environmental changes,etc.
Acute Delirium - indicate known or suspected etiology such as postoperative, due to opioids or other drugs etc. Can also indicate unknown or mixed etiologies.
Acute or subacute confusional state due to ____ (specify known or suspected etiology)
Other (please specify)
Use of terms such as suspected, likely, concern for, or probable (associated with a specific diagnosis that is being evaluated, monitored, or treated as if it exists) are acceptable and can be coded in the inpatient setting, when documented at the
time of discharge.
Thank you,
Jeanna Mccall RN BSN CCDS
CDI Specialist
Please contact via tiger text
Please use your independent medical judgment in providing your response.
[2025-01-03] MEDS: STERILE WATER FOR INJECTION 10 ML IV (15:46)
[2025-01-03] MEDS: ROCEPHIN 1000 MG IV (15:47)
[2025-01-03] MEDS: FLOMAX 0.4 MG PO (15:51)
[2025-01-03 16:09] VITALS: BP 161/76
[2025-01-03] MEDS: VITAMIN D3 (cholecalciferol) 25 MCG PO (17:42)
[2025-01-03] MEDS: SENOKOT-S 1 TABLET PO (22:55)
[2025-01-03 22:58] VITALS: BP 128/77
[2025-01-04 07:53] VITALS: BP 153/66
[2025-01-04 09:35] LABS: Hematocrit 38.8 % (37.0-47.0); Hemoglobin 12.8 g/dL (12.0-16.0); Mean Corp Hgb Conc. 33.0 g/dL (33.0-37.0); Mean Corpuscular Volume 87.2 fL (81.0-99.0); Platelet Count 183 10^3/uL (130-400); Red Cell Dist. Width 13.7 % (11.5-14.5)
[2025-01-04] MEDS: SENOKOT-S 1 TABLET PO (09:37)
[2025-01-04] MEDS: MIRALAX 17 GRAMS PO (09:37)
[2025-01-04] MEDS: HEPARIN 5000 UNITS SC (09:37)
[2025-01-04] MEDS: FLOMAX 0.4 MG PO (09:37)
[2025-01-04 10:00] LABS: Blood Urea Nitrogen 23 mg/dl (7-17); Calcium 8.7 mg/dl (8.4-10.2); Carbon Dioxide 26 mmol/L (22-30); Chloride 108 mmol/L (98-107); Estimated Creatinine Clearance 29 ml/min; Glucose 105 mg/dl (70-99); Magnesium 2.0 mg/dl (1.6-2.3); Potassium 4.0 mmol/L (3.5-5.1); Sodium 138 mmol/L (135-145); eGFR > 60.00
[2025-01-04] MEDS: TYLENOL 650 MG PO (11:01)
--- NOTE | 2025-01-04 14:21 | HOSPNOTE ---
Left a message for daughter to please call me back to discuss hospice and the philosophy. More information to follow.
--- NOTE | 2025-01-04 15:22 | W.PN.HOSP.TC ---
Today's Communication/Plan
-
hospice eval for info
neurontin for elbow pain
code status--changed to DNR
Assessment / Plan
Assessment / Plan
pt is an 89 year old female
E. coli Acute cystitis/urinary tract infection with retention requiring jaquez catheter--possible cause of abdominal pain/pain with urination--cont ceftriaxone, can change to Keflex--urine culture with E. coli--Pyridium started can stop now that
jaquez in--no further agitation or pain c/o--stop IVF-- CT abdomen pelvis shows acute cystitis with bilateral renal cysts--DIL says pt was found to have 'a mass in her kidney--was told to follow up with an MRI which she refused to do'--DIL concerned
about cancer--MRI with possible liver hemangioma, constipation and renal cysts--cont jaquez
abdominal pain--other causes besides UTI could be Chronic avulsion fractures of both ischial tuberosities at the proximal hamstring tendon attachments, constipation
Generalized weakness/confusion with presyncope/syncope--Ambulatory dysfunction--pt says she feels dizzy--could be related to UTI--agree with PT/OT
elbow pain--will try Neurontin-- possible overextension
Hepatic mass-- Reported history of cancer in the chart? none noted- CTAP showing a small lesion possible vascular shunt versus benign tumor--MRI abdomen as above
Peripheral arterial disease- Severe calcific changes of abdominal aorta/iliac/femoral artery--no signs of ischemia
Constipation- maintain on miralax daily--confirmed by CT scan--DIL says she goes all day at home
dementia -- even with language line, pt's answers do not match questions--thinks she is in her room at home, talking about the mayor helping with her room....
DVT proph -SCD
code status--DNR now
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
consult for hospice information only at this time --pt has essentially given up
Anticipated Discharge: 24 - 48 hours
Subjective/Interval History
-
Date of Service: January 04, 2025
DIL at bedside--asking about Palliative care/hospice since pt has given up since her youngest son of colon cancer in February
Objective Data
-
Labs:
Laboratory Results
01/04/25
08:34
WBC 6.5
Hgb 12.8
Hct 38.8
Plt Count 183
Sodium 138
Potassium 4.0
Chloride 108 H
Carbon Dioxide 26
BUN 23 H
Creatinine 0.8
Glucose 105 H
Calcium 8.7
Vital Signs:
max temp for 24 hours
01/03/25
22:58
Temp 98.5 F
Vital Signs
Temp Pulse Resp BP Pulse Ox
98.1 F 65 18 153/66 97
01/04/25 07:53 01/04/25 07:53 01/04/25 07:53 01/04/25 07:53 01/04/25 07:53
I&O
01/03/25 01/04/25 01/05/25
06:59 06:59 06:59
Intake Total 1830 / 1830 840 / 840
Output Total 475 / 475 2450 / 2450
Balance 1355 / 1355 -1610 / -1610
Review of Systems
-
Unable to obtain full review of systems at this time due to: Language Barrier
Musculoskeletal: Reports Other (left elbow pain per daughter)
Physical Exam
-
General: Appears Chronically Ill and Cachectic
HEENT: Normocephalic and Atraumatic; Negative Oxygen
Respiratory: Clear to Auscultation; Negative Wheezes or Rhonchi
Cardiac: Regular Rhythm and S1/S2; Negative Murmur
GI: Soft, Nontender, Nondistended and Normal Bowel Sounds
Genito-urinary: Jaquez (with orange urine)
Musculoskeletal: No Clubbing, No Cyanosis, No Edema and Other (mildly swollen left elbow, no redness)
Skin: Warm
Neuro: Awake
Psych: Calm
--- NOTE | 2025-01-04 15:42 | CM ---
Addendum entered by Leanna Saini 01/04/25 16:17:
clinical information faxed to [phone]/Gregory Snow phone [phone] executive community planning with [facility]/rosy coordination
Original Note:
Patient seen at bedside with physician and patient daughter in law. Following discussion family want to review options for home with hospice;[facility] to [facility] with [facility] vs [facility]. CM will fax to [facility]
coordinator for caregivers, patient family completed IMM and signed form placed on chart. CM will continue to follow for discharge tomorrow with [facility] vs hospice with [facility] at home. CM will continue to follow for discharge planning needs.
Plan; home with VN; [facility] vs possible [facility].
[2025-01-04 15:55] VITALS: BP 107/47
[2025-01-04] MEDS: VITAMIN D3 (cholecalciferol) 25 MCG PO (16:14)
[2025-01-04] MEDS: NEURONTIN 100 MG PO (16:14)
[2025-01-04] MEDS: STERILE WATER FOR INJECTION 10 ML IV (16:14)
[2025-01-04] MEDS: ROCEPHIN 1000 MG IV (16:14)
[2025-01-04] MEDS: DULCOLAX 10 MG RECTAL (18:27)
[2025-01-04 23:42] VITALS: BP 148/62
[2025-01-05] MEDS: HEPARIN 5000 UNITS SC ×3 (00:15→19:53)
[2025-01-05] MEDS: SENOKOT-S PO (00:36)
[2025-01-05] MEDS: NEURONTIN PO (00:36)
[2025-01-05 07:20] VITALS: BP 157/72
[2025-01-05 08:44] LABS: Hematocrit 40.5 % (37.0-47.0); Hemoglobin 12.7 g/dL (12.0-16.0); Mean Corp Hgb Conc. 31.4 g/dL (33.0-37.0); Mean Corpuscular Volume 94.6 fL (81.0-99.0); Platelet Count 180 10^3/uL (130-400); Red Cell Dist. Width 13.9 % (11.5-14.5)
[2025-01-05 09:42] LABS: ALT (SGPT) 54 U/L (0-35); AST (SGOT) 49 U/L (14-36); Albumin 3.8 g/dl (3.5-5.0); Alkaline Phosphatase 59 U/L (38-126); Blood Urea Nitrogen 28 mg/dl (7-17); Calcium 9.0 mg/dl (8.4-10.2); Carbon Dioxide 23 mmol/L (22-30); Chloride 109 mmol/L (98-107); Estimated Creatinine Clearance 29 ml/min; Glucose 117 mg/dl (70-99); Magnesium 1.9 mg/dl (1.6-2.3); Potassium 4.5 mmol/L (3.5-5.1); Sodium 137 mmol/L (135-145); Total Protein 7.3 g/dl (6.3-8.2); eGFR > 60.00
[2025-01-05] MEDS: SENOKOT-S 1 TABLET PO ×2 (09:42→19:53)
[2025-01-05] MEDS: NEURONTIN 100 MG PO ×3 (09:42→19:53)
[2025-01-05] MEDS: FLOMAX 0.4 MG PO (09:42)
[2025-01-05] MEDS: MIRALAX 17 GRAMS PO (09:43)
--- NOTE | 2025-01-05 14:15 | CM ---
Addendum entered by Yoon Montoya 01/05/25 14:47:
Correction: CM met with Dtr-in-law. Spoke with Dtr-in-law re VN. Referral sent to [facility] so they can coordinate with Palliative care.
Original Note:
Met with dtr and Dr Miranda at pt's bedside. There was a discussion regarding hospice care vs palliative care. The dtr had initially chosen hospice care but has now changed her mind. The plan is now palliative care with a transition to hospice
care. Referral sent via fax to Palliative Care/ Dr. Terence Snow. Notified hospice community liaisonAngelina of new discharge plan.
Plan: D/C to Palliative care.
--- NOTE | 2025-01-05 14:22 | W.PN.HOSP.TC ---
Today's Communication/Plan
-
lidocaine to left shoulder
d/c jaquez
anticipate home in AM?
Assessment / Plan
Assessment / Plan
pt is an 89 year old female
E. coli Acute cystitis/urinary tract infection with retention requiring jaquez catheter--possible cause of abdominal pain/pain with urination--cont ceftriaxone, can change to Keflex at d/c--urine culture with E. coli--Pyridium started can stop now
that jaquez in--no further agitation or pain c/o--stop IVF-- CT abdomen pelvis shows acute cystitis with bilateral renal cysts--DEMETRIUS says pt was found to have 'a mass in her kidney--was told to follow up with an MRI which she refused to do'--DIL
concerned about cancer--MRI with possible liver hemangioma, constipation and renal cysts--stop jaquez, cont flomax
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
Generalized weakness/confusion with presyncope/syncope--Ambulatory dysfunction--agree with PT/OT
elbow pain--will try Neurontin-- possible overextension
Hepatic mass-- Reported history of cancer in the chart? none noted- CTAP showing a small lesion possible vascular shunt versus benign tumor--MRI abdomen as above
Peripheral arterial disease- Severe calcific changes of abdominal aorta/iliac/femoral artery--no signs of ischemia
Constipation- maintain on miralax daily--confirmed by CT scan--DEMETRIUS says she goes all day at home
dementia -- even with language line, pt's answers do not match questions--thinks she is in her room at home, talking about the mayor helping with her room....
DVT proph -SCD
code status--DNR now
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
essentially given up--DEMETRIUS now wants palliative care with transition to hospice after
Anticipated Discharge: Within 24 hours
Subjective/Interval History
-
Date of Service: January 05, 2025
pt DEMETRIUS now wants palliative care with transition to hospice--she is afraid her brothers in law will say she killed their Mom
Objective Data
-
Labs:
Laboratory Results
01/05/25
08:15
WBC 5.4
Hgb 12.7
Hct 40.5
Plt Count 180
Sodium 137
Potassium 4.5
Chloride 109 H
Carbon Dioxide 23
BUN 28 H
Creatinine 0.8
Glucose 117 H
Calcium 9.0
Total Bilirubin 0.7
AST 49 H
ALT 54 H
Alkaline Phosphatase 59
Vital Signs:
max temp for 24 hours
01/05/25
07:20
Temp 97.6 F
Vital Signs
Temp Pulse Resp BP Pulse Ox
97.6 F 71 18 157/72 98
01/05/25 07:20 01/05/25 07:20 01/05/25 07:20 01/05/25 07:20 01/05/25 07:20
I&O
01/04/25 01/05/25 01/06/25
06:59 06:59 06:59
Intake Total 840 / 840 1190 / 1190
Output Total 2450 / 2450 725 / 725
Balance -1610 / -1610 465 / 465
Review of Systems
-
All other systems: Reviewed and negative
Physical Exam
-
General: Appears Chronically Ill and Cachectic
HEENT: Normocephalic and Atraumatic
Respiratory: Clear to Auscultation; Negative Wheezes
Cardiac: Regular Rhythm and S1/S2
GI: Soft, Nontender, Nondistended and Normal Bowel Sounds
Musculoskeletal: No Clubbing, No Cyanosis, No Edema and Other (elbow pain improved--now shoulder hurts)
--- NOTE | 2025-01-05 14:54 | HOSPNOTE ---
We will remain available to admit patient on hospice once patient gets home. I was informed patient is going home with palliative care and VN.
[2025-01-05 14:58] VITALS: BP 115/60
[2025-01-05] MEDS: LIDOCAINE 4% PATCH 1 PATCH TOPICAL (15:13)
[2025-01-05] MEDS: STERILE WATER FOR INJECTION 10 ML IV (15:15)
[2025-01-05] MEDS: ROCEPHIN 1000 MG IV (15:15)
[2025-01-05] MEDS: VITAMIN D3 (cholecalciferol) 25 MCG PO (16:42)
[2025-01-05 23:26] VITALS: BP 133/52
[2025-01-06] MEDS: REMOVE LIDOCAINE PATCH 1 PATCH REMOVE (02:41)
[2025-01-06 07:36] VITALS: BP 108/73
[2025-01-06 08:00] VITALS: BP 108/82
[2025-01-06] MEDS: HEPARIN 5000 UNITS SC (09:36)
[2025-01-06] MEDS: NEURONTIN 100 MG PO (09:36)
[2025-01-06] MEDS: SENOKOT-S 1 TABLET PO (09:36)
[2025-01-06] MEDS: FLOMAX 0.4 MG PO (09:36)
[2025-01-06] MEDS: MIRALAX 17 GRAMS PO (09:38)
[2025-01-06] MEDS: LIDOCAINE 4% PATCH 1 PATCH TOPICAL (09:49)
--- NOTE | 2025-01-06 12:02 | CM ---
Addendum entered by Leanna Saini 01/06/25 14:37:
daughter in law now asking for transport via ambulance, transportation forms faxed to unit.
Addendum entered by Leanna Saini 01/06/25 12:52:
Patient daughter in law wanted patient to sign form but she did not understand and Patient daughter in law is enroute and will sign form when she arrives.
Original Note:
Patient seen at bedside on . Patient for discharge home with [facility], referral sent via all scripts and referral sent 01/05 to palliative care. Patient daughter in law primary caregiver. CM attempted to reach out to SARAH MOLINA from [place]
[phone] and clinical information faxed to her at [phone]. CM reviewed with Yani from [facility] and will call to confirm ambulance transportation home. CM will continue to follow for discharge planning needs.
Plan; home with [facility]; palliative care and waiver services.
--- NOTE | 2025-01-06 12:26 | W.PN.HOSP.TC ---
Today's Communication/Plan
-
Discharge
Assessment / Plan
Assessment / Plan
89-year-old female Moroccan speaking with dysuria and generalized weakness. Had some dysuria, [id number] confirms that patient did not pass out or fall
MRI of the abdomen-8.3 mm enhancing mass in the anterior segment of the right lobe of the liver most consistent with a small hepatic tumor
CT abdomen pelvis-mild diffuse urinary bladder wall thickening consistent with acute cystitis. Very severe calcific atherosclerotic disease in the abdominal aorta, common iliac and femoral arteries.
Used language line conference services coordinator
EKG noted without any ischemia
Cardiovascular system S1-S2 appreciated
Chest clear to auscultation
Abdomen soft and nontender
Ambulating well in halls
No pedal edema
# E. coli UTI
Urinary retention requiring Dow catheter
Continue ceftriaxone
Pansensitive
# Abdominal pain likely secondary to UTI and also has chronic avulsion fractures of both ischial tuberosities at the proximal hamstring tendon attachments and constipation - Resolved
# Generalized weakness/TME with presyncopal event-all secondary to above
# Elbow pain-normal range of motion with exam today
# Elevated LFTs hepatic mass-possible hemangioma. History of previous cholecystectomy. Further work up as OP
# Peripheral artery disease -Very severe calcific atherosclerotic disease in the abdominal aorta, common iliac and femoral arteries. Lipid panel as OP.
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
# Constipation
# Dementia
# DVT prophylaxis-JONATAN
# DNR
Discussed with patient's [id number] in detail on the phone
Discussed with nursing at bedside
More than 30 minutes spent in discharge including
Final examination of the patient
Summarizing hospital stay
Instructions for continuing care to all relevant caregivers
Preparation of discharge records, prescriptions, and referral forms
Anticipated Discharge: Today
Subjective/Interval History
-
Date of Service: January 06, 2025
Objective Data
-
Vital Signs:
Vital Signs
Temp Pulse Resp BP Pulse Ox
97.7 F 61 14 108/82 98
01/06/25 08:00 01/06/25 08:00 01/06/25 08:00 01/06/25 08:00 01/06/25 08:00
I&O
01/05/25 01/06/25 01/07/25
06:59 06:59 06:59
Intake Total 1190 / 1190 840 / 840
Output Total 725 / 725 250 / 250
Balance 465 / 465 590 / 590
--- NOTE | 2025-01-06 12:30 | W.DS.TRANS ---
Addendum entered and electronically signed by Samson Mata MD 01/06/25 15:10:
Dictation- [id number]
Original Note:
DC Summary - Pharmacy Clerk
-
Discharge Instructions:
Discharge Diagnosis/Procedures Escherichia coli urinary tract infection with
urinary retention requiring Dow catheter
Dementia
Elbow pain
Peripheral arterial disease(VERY SEVERE CALCIFIC
ATHEROSCLEROTIC DISEASE in the abdominal aorta,
common iliac, and femoral arteries.)
Round 1.0 cm enhancing lesion in the anterior
segment of the right lobe of the liver.
Diagnostic possibilities are (1) a small
peripheral vascular shunt (most likely) or (2) a
small hepatic tumor (probably benign).Per CT
Constipation
Chronic avulsion fractures of both ischial
tuberosities at the proximal hamstring tendon
attachments.
Severe multilevel lumbar discogenic degenerative
disease.
Diet As tolerated,Regular
Activity As tolerated
Driving Restrictions No driving
Bathing Restrictions None
Other Services VN
Instructions:
Stand-Alone Forms:
Changes to Home Medications: Yes
Discharge Medications:
DC Medications w/original date entered in [facility]
acetaminophen 500 mg tablet (Tylenol Extra Strength) 1,000 mg PO DAILYPRN PRN MILD PAIN 06/15/23
Lactobac no.2-Bifidobac no.1-S. thermo 112.5 billion cell capsule (Visbiome) 1 cap PO DAILY Supplement 01/01/25
therapeutic multivitamin 1 tab PO DAILY Supplement 01/01/25
cefuroxime axetil 500 mg tablet 500 mg PO BID Urinary issue 2 days #4 tabs 01/06/25
cholecalciferol (vitamin D3) 25 mcg (1,000 unit) tablet 25 mcg PO QPM Supplement #0 tabs 01/06/25
gabapentin 100 mg capsule 100 mg PO TID pain, neuropathy #90 caps 01/06/25
polyethylene glycol 3350 17 gram oral powder packet 17 g PO DAILY Constipation #0 ea 01/06/25
Home Medication Changes
new
cefuroxime axetil 500 mg tablet 500 mg PO BID Urinary issue 2 days #4 tabs 01/06/25
cholecalciferol (vitamin D3) 25 mcg (1,000 unit) tablet 25 mcg PO QPM Supplement #0 tabs 01/06/25
gabapentin 100 mg capsule 100 mg PO TID pain, neuropathy #90 caps 01/06/25
polyethylene glycol 3350 17 gram oral powder packet 17 g PO DAILY Constipation #0 ea 01/06/25
Pending Results: No
[2025-01-06 13:15] LABS: TSH 1.70 uIU/ml (0.47-4.68)
[2025-01-06 13:33] LABS: Vitamin B12 447 pg/ml (239-931)
[2025-01-06 13:59] VITALS: BP 139/49
[2025-01-06] MEDS: ROCEPHIN 1000 MG IV (14:04)
[2025-01-06] MEDS: STERILE WATER FOR INJECTION 10 ML IV (14:05)
== END 2025-01-06 17:34 | disposition home health service (06) | DRG 690 ==
LOC: 4 EAST ACU 11:46
PROVIDERS: Internal Medicine; ADMITTING PHYSICIAN Hospitalist; ATTENDING PHYSICIAN Hospitalist; EMERGENCY PHYSICIAN Emergency Medicine; FAMILY PHYSICIAN Family Medicine
DX: N39.0 Urinary tract infection, site not specified (principal); K59.00 Constipation, unspecified; Z66 Do not resuscitate; G89.29 Other chronic pain; I73.9 Peripheral vascular disease, unspecified; K21.9 Gastro-esophageal reflux disease without esophagitis
CPT/HCPCS: 74177; 74183; 80048; 80053; 81003; 81015; 82607; 83690; 83735; 84443; 85025; 85027; 87077; 87086; 87186; 93005; 97116; 97163; 97167; 97530; 99285; A9575; Q9967